=== PATIENT | male | born 1975 | race African-American/Black ===

== ENCOUNTER 2020-06-02 09:54 | Emergency (ER) | payer BC ==
[2020-06-02 10:02] VITALS: BP 134/91; PULSE 72; TEMP 97.8; BMI 33.6
[2020-06-02] MEDS ORDERED: ACETAMINOPHEN 500 MG TABLET (FP) PO ONE (10:15)
[2020-06-02] MEDS ORDERED: diazePAM 5 MG TABLET PO ONE (10:15)
[2020-06-02] MEDS ORDERED: diazePAM 5 MG TABLET ONE (10:29)
[2020-06-02] MEDS ORDERED: ACETAMINOPHEN 500 MG TABLET (FP) ONE (10:29)
--- NOTE | 2020-06-02 10:39 | PDOC ---
History of Present Illness - General Chief Complaint: Back Pain Stated Complaint: LOWER BACK PAIN Time Seen by Provider: 06/02/20 10:04 History Source: Patient Exam Limitations: No Limitations - History of Present Illness Initial Comments: 06/02/20 10:35 44-year-old male history of thyroid disorder on levothyroxine presents complaining of right-sided lower back pain x3 days. Patient states pain began after he tried to "crack my back ". Pain worsens with movement. Denies we akness, numbness and tingling, radiating pain to lower extremity, palpitations, chest pain, shortness of breath, urinary complaints or any other symptom. Patient has been taking acetaminophen, last dose 1000 mg at approximately 5 AM today. ROS: as above PE: GENERAL: Obese, NAD HEAD: NCAT EYES: Pupils equal, round and reactive to light, sclera anicteric, conjunctiva clear ENT: pharynx: no erythema, no exudate, uvula midline NECK: supple CHEST: nontender RESP: clear, no w/r/r CARDIO: rrr, no m/g/r ABD: +BS, soft, nontender, non distended BACK: no midline spinal ttp, T10-T11 paraspinal tenderness to palpation, no CVAT EXTREMITIES: Normal range of motion, no edema NEUROLOGICAL: Normal speech, normal gait SKIN: Warm, Dry Is this a multiple visit Asthma Patient?: No Past History - Medical History Allergies/Adverse Reactions: Allergies Allergy/AdvReac Type Severity Reaction Status Date / Time aspirin Allergy Verified 06/02/20 09:59 Home Medications: Ambulatory Orders Cyclobenzaprine HCl 10 mg PO TID PRN 5 Days #15 tablet 06/02/20 COPD: No Thyroid Disease: Yes (HYPO) - Immunization History Immunization Up to Date: No - Psycho-Social/Smoking History Smoking History: Never smoked - Substance Abuse Hx (Audit-C & DAST Scrn) How often the patient has a drink containing alcohol: Never Score: In Men: 4 or > Positive; In Women: 3 or > Positive: 0 Screen Result (Pos requires Nsg. Audit-10AR): Negative In the last yr the pt used illegal drug/Rx for NonMed reason: No Score: Yes response is considered Positive: 0 Screen Result (Positive result requires Nsg. DAST-10): Negative *Physical Exam - Vital Signs Last Vital Signs Temp Pulse Resp BP Pulse Ox 97.8 F 72 18 134/91 10 L 06/02/20 10:00 06/02/20 10:00 06/02/20 10:00 06/02/20 10:00 06/02/20 10:00 ED Treatment Course - LABORATORY CBC & Chemistry Diagram: 06/02/20 11:22 06/02/20 11:22 Medical Decision Making - Medical Decision Making 06/02/20 10:38 44-year-old male history of thyroid disorder on levothyroxine presents complaining of right-sided lower back pain x3 days. Patient states pain began after he tried to "crack my back ". Pain worsens with movement. Denies weakness, numbness and tingling, radiating pain to lower extremity, palpitations, chest pain, shortness of breath, urinary complaints or any other symptom. Patient has been taking acetaminophen, last dose 1000 mg at brittni roximately 5 AM today. Acetaminophen 1000 mg p.o. Valium 5 mg p.o. Patient is ambulatory Reassess 06/02/20 11:19 Patient continues to feel uncomfortable Requesting an MRI of his back however understands he does not meet criteria for an MRI of his lumbar spine at this time in the emergency department Will check renal function via labs and UA Reassess 06/02/20 12:28 Reviewed labs and UA, discussed these results with patient Patient feels some improvement after oral medication Patient is ambulatory Currently does not have a primary care physician but will provide contact information for primary care physician He understands strict return precautions Discharge - Discharge Information Problems reviewed: Yes Clinical Impression/Diagnosis: Back pain Qualifiers: Back pain location: low back pain Chronicity: unspecified Back pain laterality: right Sciatica presence: without sciatica Qualified Code(s): M54.5 - Low back pain Condition: Stable Disposition: HOME - Admission No - Follow up/Referral Referrals: [facility] [Provider Group] - Patient Discharge Instructions Additional Instructions: Take acetaminophen 1000 mg every 6 hours as needed for pain Take cyclobenzaprine 10 mg 1 tablet every 8 hours Apply warm packs to area Call to schedule an appointment with primary care physician If you develop worsening back pain, inability to walk, fever, urinary incontinence, bowel incontinence or any other concerning symptom return to the ED - Post Discharge Activity
[2020-06-02 11:43] LABS: BASO % 0.6 % (0-2.0); EOS % 3.4 % (0-4.5); HEMATOCRIT 43.9 % (35.4-49); HEMOGLOBIN 13.7 GM/dL (11.7-16.9); LYMPH % 28.9 % (8-40); MCH 21.6 pg (25.7-33.7); MCHC 31.2 g/dl (32.0-35.9); MEAN CELL VOLUME 69.1 fl (80-96); MEAN PLT VOLUME 8.2 fl (7.5-11.1); MONO % 8.1 % (3.8-10.2); PLATELET COUNT 286 K/MM3 (134-434); RBC 6.35 M/mm3 (4.00-5.60); RDW 17.1 % (11.9-15.9); WHITE BLOOD COUNT 5.8 K/mm3 (4.0-10.0)
[2020-06-02 11:50] LABS: URINE APPEARANCE CLEAR; URINE BILIRUBIN NEGATIVE (NEGATIVE); URINE COLOR YELLOW; URINE GLUCOSE (UA) NEGATIVE (NEGATIVE); URINE KETONE NEGATIVE (NEGATIVE); URINE LEUK ESTERASE NEGATIVE (NEGATIVE); URINE NITRITE NEGATIVE (NEGATIVE); URINE PROTEIN TRACE (NEGATIVE)
[2020-06-02 12:17] LABS: ANISOCYTOSIS 2+; MACROCYTOSIS 0; PLATELET ESTIMATE NORMAL
[2020-06-02 12:19] LABS: ALBUMIN 4.1 g/dl (3.4-5.0); BILIRUBIN,TOTAL 0.6 mg/dL (0.2-1); BLOOD UREA NITROGEN 15.1 mg/dL (7-18); CALCIUM 9.1 mg/dL (8.5-10.1); CREATININE 1.1 mg/dL (0.55-1.3); POTASSIUM 4.8 mmol/L (3.5-5.1); TOT PROT 8.2 g/dl (6.4-8.2)
== END 2020-06-02 12:38 | disposition home or self-care (01) ==
LOC: JERFT 09:54
DX: M54.5 Low back pain (principal)
CPT/HCPCS: 36415; 80053; 81003; 85025; 99284-25